=== PATIENT | female | born 1985 | race Two or more races ===

== ENCOUNTER 2019-02-11 10:19 | Emergency (ER) | payer OTHER ==
[~2019-02-11] VITALS: Ht 170.2 cm; Wt 57.6 kg
[~2019-02-11 10:19] MED LIST: HEMATRON P.O.1 UDTAB PO; PRENATALES
[2019-02-11] MEDS ORDERED: PRENATAL + DHA1 EAC1 PO (10:41)
[2019-02-11] MEDS ORDERED: METOCLOPRAMIDE10 MG PO (16:14)
== END 2019-02-11 16:30 | disposition home or self-care (01) ==
LOC: ER 10:19
DX: O21.0 Mild hyperemesis gravidarum (principal); Z34.01 Encounter for supervision of normal first pregnancy, first trimester

== ENCOUNTER 2021-04-18 18:19 | Emergency (ER) | payer OTHER ==
[~2021-04-18] VITALS: Ht 297.2 cm; Wt 63.5 kg
[~2021-04-18 18:19] MED LIST changes: +METOCLOPRAMIDE10 MG PO; +PRENATAL + DHA1 EAC1 PO
== END 2021-04-18 20:56 | disposition left against medical advice (07) ==
LOC: ER 18:19
DX: Z53.29 Procedure and treatment not carried out because of patient's decision for other reasons (principal); Z32.01 Encounter for pregnancy test, result positive; Z33.1 Pregnant state, incidental